=== PATIENT | male | born 1990 | race Caucasian/White ===

== ENCOUNTER 2019-01-11 06:17 | Emergency (ER) | payer OTHER ==
[2019-01-11 06:28] VITALS: BP 138/95; PULSE 95; RESP 18; TEMP 98.6
--- NOTE | 2019-01-11 06:42 | ED ---
Extremity Problem HPI - General Chief complaint: Extremity Problem,Nontraumatic Stated complaint: L leg pain Time Seen by Provider: 01/11/19 06:29 Source: patient Mode of arrival: ambulatory Limitations: no limitations - History of Present Illness Initial comments: 28-year-old male presenting today for chief complaint of left knee left ankle pain x 1-2 days. Patient states that he has had left knee and ankle pain for the past few days. Patient states that he started new job with the last month and he has had been on his feet 7 days a week for 12-16 hours a day. Patient states that this is taking a tollon his body. Patient states he feels as though his legs are swollen on the left side he states is only at the knee at the ankle joint he denies any swelling of the left calf. Patient denies any redness he states the ankle feels warm. Patient denies any direct injury or trauma denies any lacerations or abrasions. Patient denies any falls. Patient has a numbness tingling or loss sensation. Patient states that he feels the pain is due to being on his feet to walk. Patient denies any history of DVT or pulmonary embolism. Patient denies any calf pain. Patient denies any recent surgeries history of cancer history of hormone use. Patient denies any limitations in range of motion or difficulty ambulating. Patient is afebrile flulike symptoms remaining review of systems negative. - Related Data Previous Rx's Medication Instructions Recorded Ibuprofen 600 mg PO Q8H PRN 7 Days #21 tablet 01/11/19 Allergies Allergy/AdvReac Type Severity Reaction Status Date / Time apple Allergy Severe Anaphylaxis Verified 01/11/19 06:29 strawberry Allergy Anaphylaxis Verified 01/11/19 06:29 sulfamethoxazole Allergy Rash/Hives Verified 01/11/19 06:29 [From Bactrim] tramadol Allergy Anaphylaxis Verified 01/11/19 06:29 trimethoprim [From Bactrim] Allergy Rash/Hives Verified 01/11/19 06:29 Review of Systems ROS Statement: Those systems with pertinent positive or pertinent negative responses have been documented in the HPI. ROS Other: All systems not noted in ROS Statement are negative. Past Medical History Past Medical History: No Reported History History of Any Multi-Drug Resistant Organisms: None Reported Additional Past Surgical History / Comment(s): Kindey stones Past Psychological History: No Psychological Hx Reported Smoking Status: Never smoker Past Alcohol Use History: Rare Past Drug Use History: None Reported General Exam - General Exam Comments Initial Comments: General: The patient is awake and alert, in no distress, and does not appear acutely ill. Eye: Pupils are equal, round and reactive to light, extra-ocular movements are intact. No nystagmus. There is normal conjunctiva bilaterally. No signs of icterus. . Cardiovascular: There is a regular rate and rhythm. No murmur, rub or gallop is appreciated. Respiratory: Lungs are clear to auscultation, respirations are non-labored, breath sounds are equal. No wheezes, stridor, rales, or rhonchi. Musculoskeletal: Upon inspection of the lower semis bilaterally day. Equal. There is no obvious swelling of the knees or ankles bilaterally. No pitting edema. Patient has tenderness over the anterior knee joint and ankle mortise. No pain out of proportion patient is able to fully range without difficulty and weight-bear. Strength is intact sensation is present for approximately distal to the affected sites. Strong equal +2 dorsalis pedis pulses bilaterally compressible compartments. Patient is no evidence of footdrop. No warmth appreciated nor redness of joint. Negative Allie bilaterally. No tender to palpation of the posterior calf. Neurological: A&O x 3. CN II-XII intact, There are no obvious motor or sensory deficits. Coordination appears grossly intact. Speech is normal. Skin: Skin is warm and dry and no rashes or lesions are noted. Psychiatric: Cooperative, appropriate mood & affect, normal judgment. Limitations: no limitations Course Vital Signs 01/11/19 06:25 Temperature 98.6 F Pulse Rate 95 Respiratory 18 Rate Blood Pressure 138/95 O2 Sat by Pulse 99 Oximetry Medical Decision Making - Medical Decision Making 28-year-old male presenting for knee and ankle pain. Patient states he feels this is from being on his feet too often. There is no physical abnormalities noted on examination. Patient states he feels needs a few days off from work. There is no redness there is no concern for septic joint. No tenderness to palpation of the calf or swelling of the calf. No risk factors for DVT. At this time I feel patient is stable for discharge with RICE instruction and rest for the next 1-2 days. Return parameters discussed at length case is discussed mentally provider Dr. Godfrey and patient was discharged appearing well. Disposition Clinical Impression: Left knee pain, Left ankle pain Disposition: HOME SELF-CARE Condition: Good Instructions (If sedation given, give patient instructions): R.I.C.E. Treatment (ED) Additional Instructions: Please use medication as discussed. Please follow-up with family doctor in the next 2 days. If knee/ankle becomes swollen, red, unable to bend or move the joints, fevers, flu like symptoms or increasing pain discomfort despite rest immediately return to the ER. Please return to emergency room for any other concerning symptoms. Prescriptions: Ibuprofen 600 mg PO Q8H PRN 7 Days #21 tablet PRN Reason: Pain Is patient prescribed a controlled substance at d/c from ED?: No Referrals: None,Stated [REFERRING] - 1-2 days Time of Disposition: 06:39
== END 2019-01-11 06:54 | disposition home or self-care (01) ==
LOC: EC 06:17
DX: M25.572 Pain in left ankle and joints of left foot (principal); M25.562 Pain in left knee; Z88.2 Allergy status to sulfonamides; Z88.6 Allergy status to analgesic agent; Z91.018 Allergy to other foods
CPT/HCPCS: 99283